=== PATIENT | male | born 1945 | race Caucasian/White ===

== ENCOUNTER → 2017-11-27 08:36 | Outpatient (CLI) | payer MEDICARE, SELFPAY ==
[2017-11-27 09:19] LABS: Basophils # 0.1 K/mm3 (0-0.2); Basophils % 1.1 % (0.1-2.0); Eosinophils # 0.3 K/mm3 (0.0-0.4); Eosinophils % 6.4 % (0.1-12.0); Hematocrit 42.7 % (42.0-52.0); Hemoglobin 14.3 g/dL (14.1-18.0); Lymphocytes # 1.1 K/mm3 (0.7-4.5); Lymphocytes % 24.1 K/mm3 (10-50); Mean Corpuscular HGB Conc 33.4 g/dL (31.8-35.4); Mean Corpuscular Hemoglobin 28.8 pg (27.0-31.2); Mean Corpuscular Volume 86.4 fl (80-94); Mean Platelet Volume 8.3 fl (7.4-10.4); Monocytes # 0.3 K/mm3 (0.1-1.0); Monocytes % 6.1 % (1.7-9.3); Neutrophils # 2.9 K/mm3 (1.8-7.8); Neutrophils % 62.4 % (37.0-80.0); Platelet Count 162 K/mm3 (142-424); Red Blood Count 4.94 M/mm3 (4.60-6.20); White Blood Count 4.7 K/mm3 (4.8-10.8)
[2017-11-27 11:45] LABS: Erythrocyte Sedimentation Rate 9 mm/hr (0-20)
[2017-11-27 16:57] LABS: C-Reactive Protein < 0.2 mg/L (0.0-0.9)
[2017-12-01 06:03] LABS: Anti-Cyclic Citrullinated Pept 2 units (0-19)
[2017-12-04 12:44] LABS: Antinuclear Antibodies, IFA Negative (.)
== END ==
PROVIDERS: Visit Provider Orthopaedic Surgery
DX: T84.54XA Infection and inflammatory reaction due to internal left knee prosthesis, initial encounter (principal)
CPT/HCPCS: 36415; 85025; 85651; 86038; 86140; 86200

== ENCOUNTER 2018-02-02 08:21 | Outpatient (RCR) | payer MEDICARE, SELFPAY | END 2018-04-09 12:57 | disposition home or self-care (01) | LOC: PT 08:21 | PROVIDERS: Visit Provider Clinical Nurse Specialist Adult Health | DX: Z95.1 Presence of aortocoronary bypass graft (principal) | CPT/HCPCS: 93798 ==

== ENCOUNTER → 2018-06-04 08:10 | Outpatient (CLI) | payer MEDICARE, SELFPAY ==
--- NOTE | 2018-06-04 08:17 | XR_ITS ---
XR chest 2V HISTORY: Chest discomfort ITS.REASON: PLEURAL EFFUSION ORDERING PHYSICIAN: Jarrett Long PATIENT AGE: 72 years COMPARISON: PA and lateral chest 02/06/2017 FINDINGS: The lung gudino are fairly well-expanded. There is a [id number] sized left pleural effusion and there is discoid atelectasis in left perihilar region. There are sternal wire sutures and surgical clips from previous bypass procedure and if the surgery has been recent the left sided chest findings are not unexpected. Cardiac size is normal and the vascularity is normal. The left upper lung field and right lung field are clear and the right costophrenic angle is clear. IMPRESSION: Evidence of previous CABG, left pleural effusion and left perihilar atelectasis as noted.
== END ==
PROVIDERS: PCP Family Medicine; Visit Provider Thoracic Surgery (Cardiothoracic Vascular Surgery)
DX: J90 Pleural effusion, not elsewhere classified (principal)
CPT/HCPCS: 71046

== ENCOUNTER → 2020-11-09 08:29 | Outpatient (CLI) | payer MEDICARE, SELFPAY ==
[2020-11-09 14:39] LABS: Prostate Specific Ag, Diagnost < 0.064 ng/ml (0.0-4.0)
== END ==
PROVIDERS: Visit Provider Urology
DX: C61 Malignant neoplasm of prostate (principal)
CPT/HCPCS: 36415; 84153

== ENCOUNTER → 2021-05-23 10:11 | Outpatient (CLI) | payer MEDICARE, SELFPAY ==
[2021-05-23 11:31] LABS: Prostate Specific Ag Screen < 0.1 ng/ml (0.0-4.0)
== END ==
PROVIDERS: Visit Provider Urology
DX: Z85.46 Personal history of malignant neoplasm of prostate (principal); Z12.5 Encounter for screening for malignant neoplasm of prostate
CPT/HCPCS: 36415; G0103